=== PATIENT | male | born 1980 | race Caucasian/White ===

== ENCOUNTER 2025-01-03 15:07 | Emergency (ER) | payer MEDICAID ==
[~2025-01-03] VITALS: Ht 177.8 cm; Wt 91.5 kg
[~2025-01-03 15:07] MED LIST: ALBU8HFA PO; HYDR1TAB PO; IBUP-814 PO
[2025-01-03 15:29] VITALS: BP 149/94; PULSE 107; RESP 18; O2SAT 97
[2025-01-03] MEDS ORDERED: AMOX-117 PO (16:43)
--- NOTE | 2025-01-03 16:44 | Physician Documentation ---
HPI ~ General Chief Complaint: Tooth Problem Stated Complaint: TOOTH PAIN Time Seen by MD: 15:41 OK to notify your PCP?: Yes Primary Medical Doctor: NONE Source: patient Mode of Arrival: POV Exam Limitations: no limitations History of Present Illness HPI Comment This is a 44-year-old male who comes in complaining of dental pain and now facial swelling. He says he has got a severely decayed tooth in the left lower jaw line. It has since he woke up today and he has facial swelling. He denies fevers or chills. He has yet to go to a dentist. He does smoke cigarettes. Medication Reconciliation Allergies: Coded Allergies: No Known Allergies (Unverified , 08/29/11) Scheduled Amox Tr/Potassium Clavulanate (Augmentin 875-125 Tablet), 1 TAB PO Q12H Hydrocodone/Acetaminophen (Vicodin 5-500 Tablet), 1 TAB PO Q4H Ibuprofen (Motrin), 600 MG PO Q6H PRN FOR PAIN Scheduled PRN albuterol inhaler (Pro-Air Inhaler), 1-2 PUFFS PO Q4H PRN for SOB or wheezing Past Medical History Past Medical History: Asthma Past Surgical History: no surgical history Lives In: Home Physical Exam Vital Signs: Temperature: 97.7, Source: Temporal, Heart Rate: 107, Respiratory Rate: 18, BP: 149/94, Pulse Oximetry: 97, Weight: 91.500 Oxygen Flow Rate: 0 Pulse Oximetry Reflects: adequate oxygenation General Appearance: alert, WD/WN, no apparent distress Teeth/Gums To inspection of the left lower jaw line the patient has a severely decayed 2nd to last molar. There is erythema and edema of the gums surrounding the decayed tooth. No discharge from the gums. Face Inspection of the outer face the patient does have edema of the left lateral mandible. No change in overlying skin color or temperature. No obvious fluctuance to palpation of the area. Progress Results/Orders Results/Orders Vital Signs 01/03/25 01/03/25 15:29 17:06 Temp 97.7 97.7 Pulse 107 Resp 18 B/P (MAP) 149/94 Pulse Ox 97 O2 Flow Rate 0 Medical Decision Making Findings The patient received Rocephin 1 g IM here. I will continue with the Augmentin 875 twice a day for 10 days. The patient can take ibuprofen for discomfort and follow up with a dentist for definitive care. Additional Comment Tooth decay. Dental abscess. Periapical abscess. Departure Disposition: HOME / SELF CARE / HOMELESS Impression: Primary Impression: Dental abscess Condition: Stable Discharge Instructions: Dental Abscess Additional Instructions: I suggest you do not smoke while he had this infection. Take the antibiotics as prescribed. Ibuprofen or Tylenol for pain. Follow up with a dentist for definitive care. Referrals: NO PRIMARY CARE PROVIDER (PCP) Prescriptions Amox Tr/Potassium Clavulanate (Augmentin 875-125 Tablet) 1 Each Tablet 1 TAB PO Q12H for 10 Days, #20 TAB Prov: MAME COOK 01/03/25 Signature Scribe Signature: No scribe Attestation: The note accurately reflects work and decisions made by me.Mame ALEXANDER 01/03/25 16:44 MAME COOK Jan 03, 2025 16:44 JEANNINE BELL MD Jan 04, 2025 08:05
[2025-01-03] MEDS: CefTRIAXone 1000mg IM Kit (w/lidocaine diluent) IM ONE (16:55)
[2025-01-03 17:06] VITALS: TEMP 97.7
== END 2025-01-03 17:07 | disposition home or self-care (01) ==
LOC: ER 15:07
DX: K04.7 Periapical abscess without sinus (principal); K02.9 Dental caries, unspecified; J45.909 Unspecified asthma, uncomplicated; F17.210 Nicotine dependence, cigarettes, uncomplicated; Z79.899 Other long term (current) drug therapy
CPT/HCPCS: 96372; 99283; J0696